=== PATIENT | female | born 1945 | race Caucasian/White ===

== ENCOUNTER 2018-08-08 11:21 | Inpatient (IN) | payer MEDICAID ==
[~2018-08-08] VITALS: Ht 154.9 cm; Wt 57.6 kg
--- NOTE | ~2018-08-08 | PR ---
[place], [place] PROGRESS NOTE NAME: CHINA ROGERS UNIT #: [id number] ROOM: 309 DOCTOR: QUE MORALES MD BIRTHDATE: [birth year] DOS: 08/10/2018 PSYCHIATRIC PROGRESS NOTE SUBJECTIVE: The patient seen and spoke with the nursing staff. Per staff, the patient is still sexually preoccupied; did not sleep well last night, also getting antibiotic for urinary tract infection. The patient was pleasant and cooperative. She was in the day area in a chair, watching TV. She was good with me. She said that she is feeling better. She was appropriate with me. She denied any side effect from the medication, did not express any other problem or concern. MENTAL STATUS EXAMINATION: The patient was pleasant and cooperative, described her mood as "better." Affect, mood congruent. She denied auditory or visual hallucination. No delusion or paranoia noted. She denied suicidal ideation, intent or plan. She also denied any homicidal ideation, intent or plan. PLAN: 1. Continue current medications and care. 2. Continue redirection. 3. Supportive care. QUE MORALES MD CM:PNTRANS [phone] QUE MORALES MD 08/11/18 0500 interface
--- NOTE | ~2018-08-08 | PR ---
[place], [place] PROGRESS NOTE NAME: CHINA ROGERS UNIT #: [id number] ROOM: 309 DOCTOR: GERARDO TILLMAN MD BIRTHDATE: [birth year] DOS: 08/12/2018 INTERVAL NOTE CHIEF COMPLAINT: "I don't really feel good today. I don't know what's wrong." SUMMARY OF THE VISIT: The patient was interviewed as she was resting quietly in bed. She had the covers pulled around her neck. She reported that she just did not feel well. She could not verbalize exactly what was wrong. I asked if she was nauseated or if she felt stuffy, she was not able to tell me. She was fairly pleasant and cooperative. There were no episodes of inappropriate sexual behavior, although nurses continued to report episodic behavior of flashing her breasts or making sexually rude comments. MENTAL STATUS EXAMINATION: This morning, she is alert and oriented to person, possibly place, not to time however. Mood does seem to be fairly euthymic this morning. Affect relatively appropriate. There is no jona, hypomania or gross psychotic symptoms. Short term memory continued to be problematic. PLAN: At this point in time, I need to rule out organic causes of her hypersexuality. I will order a vitamin B12, vitamin D levels, serum ammonia level, sed rate, testosterone and TSH. Also order a CAT scan of the head with and without contrast to rule out tumor or vascular abnormalities. I will check a valproic acid level in the a.m. tomorrow morning to determine if it is therapeutic and adjust her Depakote accordingly, increase her Exelon patch from 4.6 to 9.5 mg a day while maintaining Namenda at 10 mg b.i.d. GERARDO TILLMAN MD CM:PNTRANS 6 [phone] GERARDO TILLMAN MD 08/12/181701 interface
--- NOTE | ~2018-08-08 | PR ---
[place], [place] PROGRESS NOTE NAME: CHINA ROGERS UNIT #: [id number] ROOM: 309 DOCTOR: GERARDO TILLMAN MD BIRTHDATE: [birth year] DOS: 08/13/2018 INTERVAL NOTE CHIEF COMPLAINT: "I don't feel well this morning." SUMMARY OF THE VISIT: The patient was interviewed in the group therapy room where she had just received breathing treatment. The patient was sitting quietly in her chair with a blanket pulled around her. She reported that once again she did not feel well this morning and was complaining of an upset stomach. This is two days in a row in which her morning seemed to be punctuated with these complaints. Nurses report, though yesterday despite this fact she continued to escalate later in the day and was still sexually inappropriate towards men blowing kisses and doing other inappropriate behaviors. MENTAL STATUS: She is alert and oriented to self, possibly place, but not time. Mood does seem to be relatively depressed and flat. At this morning, she is blunted and constricted and was not really forthcoming with much information. I did not see the presence of any jona, hypomania or psychosis. Short term memory does have gaps. PLAN: Her valproic acid level is relatively high at 112.7. Her nighttime dose of Depakote is 500 mg, which could potentially be causing GI upset. I will lower her Depakote then from 1000 mg a day to 750 mg a day given in 250 mg t.i.d. dosing. A B12 level that was obtained yesterday was relatively low normal at 266. I will treat with vitamin B12 injection 1000 mcg IM monthly. We will continue to engage her in individual and barrett milieu activity, returning to the least restrictive environment when psychiatrically stable. GERARDO TILLMAN MD CM:PNTRANS [id number] GERARDO TILLMAN MD 08/13/18 1249 interface
--- NOTE | ~2018-08-08 | PR ---
[place], [place] PROGRESS NOTE NAME: CHINA ROGERS UNIT #: [id number] ROOM: 309 DOCTOR: GERARDO TILLMAN MD BIRTHDATE: [birth year] DOS: 08/15/2018 INTERVAL NOTE CHIEF COMPLAINT: "I am okay. I just want to rest." SUMMARY OF THE VISIT: The patient was interviewed once again as she was resting quietly in bed. She again voiced no complaints. She did not state that her stomach was hurting any longer. She did report that she did get up and eat breakfast and was wanting just to be back in bed. Nurses report continued episodes of inappropriate sexual behavior that she seems to be unaware that she is doing and it seems like it is totally out of her control at times. MENTAL STATUS: She was alert and oriented to person, possibly place, not to time. Mood was fairly euthymic. Affect appropriate. There is no jona, hypomania or gross psychotic symptoms. Short term memory continues to be problematic. PLAN: I will start her on Nuedexta 20-10 one tablet daily. Looking at this sexual inappropriate behavior as a pseudobulbar like symptom. We will monitor closely for both risks and benefit, engage in individual and barrett milieu activity, returning to the least restrictive environment when psychiatrically stable. GERARDO TILLMAN MD CM:PNTRANS [id number] GERARDO TILLMAN MD 08/15/18 1159 interface
--- NOTE | ~2018-08-08 | DS ---
[place], [place] DISCHARGE SUMMARY NAME: CHINA ROGERS UNIT #: [id number] ROOM: 309 DOCTOR: GERARDO TILLMAN MD BIRTHDATE: [birth year] DOS: 08/19/2018 CHIEF COMPLAINT: "I slept well." HISTORY OF PRESENT ILLNESS: This is a 72-year-old white female who was admitted to the hospital from [facility]. The patient had become increasingly sexually inappropriate there. She has been very sexually aggressive. The patient was disrobed and flashing in front of her window to passerby on the street. She did engage in oral sex with a male resident in the [facility] and had been making very elude and sexual comments to both staff and patients alike. Attempts to redirect were unsuccessful and the patient was putting herself and others at substantial risk of harm. She was admitted now to rule out organic factors to stabilize on medication, to engage in individual and barrett milieu activity and then to determine the least restrictive environment to which she could be returned. SUMMARY OF HOSPITAL COURSE: The patient was admitted to the unit where she was found to have a UTI and was started on Cipro. Additionally, her Aricept was discontinued and she was started on Exelon patch and her Namenda was increased from 10 mg a day to 10 mg b.i.d., Exelon patch was gradually increased during her stay then from 4.6 mg a day to its maximum dose of 13.3 mg a day. She was initially started on Depakote for mood lability and while this did decrease some of her mood lability, she still was extremely sexually aggressive throughout her early part of her stay. She made elude comments to both staff and male patients. She attempted to fondle both male patients and female patients and staff alike. The behavior seemed totally out of character for her and at times she was perplexed by her behavior to the point where it became evident that this was something that was not willful or voluntary on her part. She was started then on Nuedexta 20/10 for pseudobulbar affect with significant improvement noted within a matter of 24 hours. The behavior began to subside as the dose was increased to its maximum of 20/10 one tablet every 12 hours. For the latter part of her stay, she did not exhibit any sexual inappropriate behavior. There were no sexual comments made. There was no acting out in any way. She tolerated the medications well without any apparent side effects. There was no sedation, somnolence, extrapyramidal symptoms or tardive dyskinesia. She was able to engage readily in conversation during the latter part of her stay that in this conversation was appropriate. With minimal help, she was able to attend to her ADLs. The patient improved readily to be able to be discharged then to [facility] in [place], [place]. MENTAL STATUS AT DISCHARGE: She is alert and oriented to person, possibly place, but not to time. Mood does seem to be strongly trending towards euthymia and affect was much more appropriate. There was no jona, hypomania or gross psychotic symptoms. She did process slowly and short-term memory was problematic. FINAL DIAGNOSES: Impulse control disorder, not otherwise specified, and pseudobulbar affect along with Alzheimer's dementia. DISPOSITION: All of her prescriptions have been printed and will be sent with [place], [place] DISCHARGE SUMMARY NAME: CHINA ROGERS UNIT #: [id number] ROOM: 309 DOCTOR: GERARDO TILLMAN MD BIRTHDATE: [birth year] her when she is admitted to [facility]. I will be treating psychiatrist of record when she is admitted there. At the time of discharge, there were no acute medical issues and psychiatrically the patient was stable. GERARDO TILLMAN MD CM:DISCHJASMYNE [phone] GERARDO TILLMAN MD 08/19/18 164 interface
--- NOTE | ~2018-08-08 | PR ---
[place], [place] PROGRESS NOTE NAME: CHINA ROGERS UNIT #: [id number] ROOM: 309 DOCTOR: GERARDO TILLMAN MD BIRTHDATE: [birth year] DOS: 08/16/2018 CHIEF COMPLAINT: "Oh, I got up and I had breakfast, thank you." SUMMARY OF THE VISIT: The patient was once again interviewed as she was resting quietly in bed. She again engaged in pleasant, superficial conversation with me denying any major issues. Nurses did report on a positive note that there was no sexually inappropriate behavior yesterday afternoon leading into the evening and night. Whether this is a direct relation to initiating the Nuedexta therapy or not it is unclear, but she does seem to be trending toward improvement. MENTAL STATUS: She is alert and oriented to person, possibly place, but not to time. Mood does seem to be trending towards euthymia. Affect is more appropriate. There is no ojna, hypomania or gross psychotic symptoms. Short term memory is still problematic. PLAN: I will increase the Nuedexta 20-10 from 1 a day to 1 twice a day. Monitor and support, engage in individual and barrett milieu activity, returning to the least restrictive environment when psychiatrically stable. GERARDO TILLMAN MD CM:PNTRANS [id number] GERARDO TILLMAN MD 08/17/18 0354 interface
--- NOTE | ~2018-08-08 | PR ---
[place], [place] PROGRESS NOTE NAME: CHINA ROGERS UNIT #: [id number] ROOM: 309 DOCTOR: QUE MORALES MD BIRTHDATE: [birth year] DOS: 08/11/2018 PSYCHIATRIC PROGRESS NOTE SUBJECTIVE: The patient seen and spoke with staff. Per staff, the patient did very well yesterday. Compliant with her medication. No sexually inappropriate behavior. Per nursing staff, she started acting out this morning. She flashes her breasts to another patient and was yelling and screaming at them. When I went to see her, she was sitting in a [place] chair in front of the nursing station. She was pleasant and cooperative, reports doing well. She reports good sleep and appetite. She denied any side effect from the medication. MENTAL STATUS EXAMINATION: The patient was pleasant and cooperative with me. Described her mood as "okay." Affect was mood congruent with me, but labile at times per staff. She denied auditory or visual hallucination. No delusion or paranoia noted. She denied suicidal ideation, intent or plan. She also denied homicidal ideation, intent or plan. PLAN: 1. Continue current medication and care. 2. Continue redirection. 3. Supportive care. QUE MORALES MD CM:PNTRANS [phone] QUE MORALES MD 08/11/18 2211 interface
--- NOTE | ~2018-08-08 | EKG ---
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
--- NOTE | ~2018-08-08 | PR ---
[place], [place] PROGRESS NOTE NAME: CHINA ROGERS UNIT #: [id number] ROOM: 309 DOCTOR: GERARDO TILLMAN MD BIRTHDATE: [birth year] DOS: 08/14/2018 CHIEF COMPLAINT: "I am just so tired." SUMMARY OF THE VISIT: The patient was once again interviewed as she was resting quietly in bed with the covers pulled around her neck. She engaged in brief but superficial conversation. She was pleasant. There was no sexually inappropriate behavior. There was no agitation or aggression. She voiced the only complaint was tiredness. She stated that her belly no longer hurt like it had the previous day and this seems to correspond with me lowering the nighttime dose of the Depakote from 500 to 250 mg. MENTAL STATUS: She remains alert and oriented to person. She reported to me that she is in her own home currently and she was not able to tell me how long she has been here. She was pleasant and cooperative for the most part. Responses were short and simple. There was no jona, hypomania or psychosis. Short term memory remains extremely problematic. PLAN: I will maximize out the dose of the Exelon patch, bringing it from 9.5 to 13.3 mg a day while augmenting it with Namenda 10 mg b.i.d. Maintain her current dose then of Depakote, consider a nighttime mood stabilizer if need be. Her nighttime behavior does still seem to be problematic. We will monitor for the next 24 hours before this decision is made. GERARDO TILLMAN MD CM:PNTRANS [id number] GERARDO TILLMAN MD 09/06/18 0817 interface
[2018-08-08] MEDS ORDERED: NORVASC5 MG PO (13:07)
[2018-08-08] MEDS ORDERED: LIPITOR20 MG PO (13:08)
[2018-08-08] MEDS ORDERED: CELEXA10 MG PO (13:09)
[2018-08-08] MEDS ORDERED: SUPER CALCIUM PO (13:09)
[2018-08-08] MEDS ORDERED: DONEPEZIL HCL10 MG PO (13:10)
[2018-08-08] MEDS ORDERED: VITAMIN D350000 UNIT PO (13:11)
[2018-08-08] MEDS ORDERED: FERROUS SULFAT324 M2 PO (13:12)
[2018-08-08] MEDS ORDERED: NAMENDA10 MG PO (13:12)
[2018-08-08] MEDS ORDERED: SEROQUEL50 MG PO (13:13)
[2018-08-08] MEDS ORDERED: Ipratropium Brom3 ML INH (13:14)
[2018-08-08] MEDS ORDERED: NEURONTIN100 MG PO (13:15)
[2018-08-08] MEDS ORDERED: NORCO 5-325 TA1 EACH PO ×2 (13:16→13:17)
[2018-08-08] MEDS ORDERED: Zofran4 MG SL (13:18)
[2018-08-08 13:56] VITALS: BP 137/56; BP 137/64
[2018-08-08 15:05] VITALS: BP 137/64
[2018-08-08 15:14] LABS: BILIRUBIN NEGATIVE (NEGATIVE); BLOOD 1+ (NEGATIVE); CLARITY CLOUDY (CLEAR); COLOR YELLOW (YELLOW); GLUCOSE NEGATIVE (NEGATIVE); KETONE NEGATIVE (NEGATIVE); LEUKO ESTERASE 3+ (NEGATIVE); NITRITE NEGATIVE (NEGATIVE); UROBILINOGEN 0.2 E.U./dl (0.2-1.0)
[2018-08-08 15:32] LABS: BASO # 0.1 10*3/uL (0.0-0.1); BASO % 0.7 % (0.0-1.0); EOS # 0.2 10*3/uL (0.0-0.4); EOS % 2.4 % (1.0-4.0); HEMATOCRIT 44.6 % (37.0-47.0); HEMOGLOBIN 14.9 g/dl (12.0-16.0); LYMPH # 1.7 10*3/uL (1.3-4.4); LYMPH % 24.1 % (27.0-41.0); MEAN CELL VOLUME 86.6 fl (81.0-99.0); MEAN CORPUSCULAR HGB 28.9 pg (27.0-31.0); MEAN CORPUSCULAR HGB CONC 33.4 g/dl (33.0-37.0); MEAN PLATELET VOLUME 9.2 fl (9.6-12.3); MONO # 0.8 10*3/uL (0.1-1.0); MONO % 10.4 % (3.0-9.0); NEUT # 4.5 10*3/uL (2.3-7.9); NEUT % 62.3 % (47.0-73.0); PLATELET COUNT AUTOMATED 216 10*3/uL (130-400); RED BLOOD COUNT 5.15 10*6/uL (4.10-5.10); RED CELL DISTRI WIDTH 14.4 % (0-14.5); WHITE BLOOD COUNT 7.2 10*3/uL (4.8-10.8)
[2018-08-08 15:42] LABS: BACTERIA 3+; WBC TNTC wbc/hpf (0-5)
[2018-08-08 15:43] LABS: EPITHELIAL CELLS 16-20
[2018-08-08 15:49] LABS: ALBUMIN 3.6 gm/dl (3.1-4.5); ALKALINE PHOSPHATASE 107 U/L (45-117); BUN 9 mg/dl (7-24); CHLORIDE 106 mmol/L (98-107); CREATININE 0.74 mg/dL (0.55-1.02); POTASSIUM 3.7 mmol/L (3.5-5.1); SGOT/AST 25 IU/L (3-35); SGPT/ALT 25 U/L (12-78); SODIUM 140 mmol/L (136-145); TOTAL PROTEIN 7.8 gm/dL (6.4-8.2)
[2018-08-08 15:57] LABS: THYROID STIM HORMONE (HS) 0.846 uIU/ml (0.358-4.75)
[2018-08-08 16:33] LABS: VITAMIN D, 25-HYDROXY 49.6 ng/mL (30-100)
[2018-08-08 18:34] VITALS: BP 129/63
[2018-08-08 20:00] VITALS: BP 129/63
[2018-08-09 06:59] LABS: CHOLESTEROL 121 mg/dL (<200); HDL CHOLESTEROL 54 mg/dl (40-60); LDL CHOLESTEROL 52 mg/dL (9-159); TRIGLYCERIDES 76 mg/dl (<150); VLDL CHOLESTEROL 15 mg/dL (6-40)
[2018-08-09 08:00] VITALS: BP 133/70
[2018-08-09 19:02] VITALS: BP 110/58
[2018-08-10 08:04] VITALS: BP 125/75
[2018-08-10 20:07] VITALS: BP 105/60
[2018-08-11 07:10] VITALS: BP 137/74
[2018-08-11 11:40] VITALS: BP 130/65
[2018-08-11 19:16] VITALS: BP 115/50
[2018-08-11 20:00] VITALS: BP 124/66
[2018-08-12 08:08] VITALS: BP 122/68
[2018-08-12 15:20] LABS: VITAMIN D, 25-HYDROXY 61.4 ng/mL (30-100)
[2018-08-12 20:00] VITALS: BP 120/64
[2018-08-13 07:51] VITALS: BP 126/65
[2018-08-13 19:59] VITALS: BP 124/72
[2018-08-14 09:09] VITALS: BP 111/70
[2018-08-14 19:50] VITALS: BP 111/65
[2018-08-15 06:24] VITALS: BP 122/70
[2018-08-15 09:07] LABS: PROGESTERONE 004317 0.1 ng/mL (.)
[2018-08-15 20:25] VITALS: BP 111/70
[2018-08-16 07:46] VITALS: BP 128/70
[2018-08-16 20:42] VITALS: BP 110/68
[2018-08-17 07:18] VITALS: BP 131/69
[2018-08-17 19:44] VITALS: BP 100/58
[2018-08-18 07:48] VITALS: BP 137/77
[2018-08-18 20:05] VITALS: BP 128/62
[2018-08-19 08:00] VITALS: BP 102/74
[2018-08-19] MEDS ORDERED: EXELON13.3 MG/21 T (10:00)
[2018-08-19] MEDS ORDERED: GABAPENTIN100 M2 PO (10:01)
[2018-08-19] MEDS ORDERED: NEUDEXT PO (10:01)
[2018-08-19] MEDS ORDERED: B121000 MCG/1 IM (10:01)
[2018-08-19] MEDS ORDERED: MEMANTINE HCL10 MG PO (10:01)
[2018-08-19] MEDS ORDERED: DIVALPROEX SOD250 MG PO (10:01)
== END 2018-08-19 17:58 | disposition other institution (70) | DRG 57 ==
LOC: 3N 11:21
PROVIDERS: Psychiatry & Neurology Psychiatry
DX: G30.9 Alzheimer's disease, unspecified (principal); N39.0 Urinary tract infection, site not specified; F02.81 Dementia in other diseases classified elsewhere, unspecified severity, with behavioral disturbance; F63.9 Impulse disorder, unspecified; R07.9 Chest pain, unspecified; I10 Essential (primary) hypertension; F41.1 Generalized anxiety disorder; G35 Multiple sclerosis; R31.9 Hematuria, unspecified; J44.9 Chronic obstructive pulmonary disease, unspecified; K21.9 Gastro-esophageal reflux disease without esophagitis; F17.200 Nicotine dependence, unspecified, uncomplicated; E78.5 Hyperlipidemia, unspecified; F32.9 Major depressive disorder, single episode, unspecified; Z83.3 Family history of diabetes mellitus; Z88.6 Allergy status to analgesic agent; Z90.10 Acquired absence of unspecified breast and nipple; Z79.899 Other long term (current) drug therapy; Z85.3 Personal history of malignant neoplasm of breast